=== PATIENT | male | born 1980 | race Caucasian/White ===

== ENCOUNTER 2018-03-31 21:31 | Emergency (ER) | payer OTHER ==
[~2018-03-31] VITALS: Ht 175.3 cm; Wt 97.5 kg
== END 2018-03-31 22:13 | disposition home or self-care (01) ==
LOC: ED 21:31
DX: S68.123A Partial traumatic metacarpophalangeal amputation of left middle finger, initial encounter (principal); W26.0XXA Contact with knife, initial encounter; Z88.1 Allergy status to other antibiotic agents
CPT/HCPCS: 99282

== ENCOUNTER 2023-05-21 12:00 | Emergency (ER) | payer OTHER ==
[~2023-05-21] VITALS: Ht 175.3 cm; Wt 102.1 kg
--- OUTSIDE RECORDS SUMMARY | 2023-05-21 12:04 | XMS ---
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 Lona has no Care Guidelines for this patient. Crystal VISIT COUNT (12 MO.) 1 CRISTINA Barrera TOTAL 1 NOTE: Visits indicate total known visits. ED/C VISIT TRACKING (12 MO.) 05/21/2023 12:01 [facility]ST[facility] Fontaine [place] TYPE: Emergency COMPLAINT: - CHEST PAIN INPATIENT VISIT TRACKING (12 MO.) No inpatient visits to display in this time frame [email or web address]
[2023-05-21] MEDS ORDERED: BUPRENORPHINE HC2 MG SL (12:14)
[2023-05-21 12:26] LABS: BASOPHILS 0.8 % (0-2); EOSINOPHILS 0.9 % (0-6); HEMATOCRIT 43.2 % (35.0-50.0); HEMOGLOBIN 14.5 g/dL (12.0-18.0); LYMPHOCYTES 28.8 % (24-44); MCH 29.3 (27-36); MCHC 33.5 g/dl (30-36); MCV 87.4 fl (81-99); MONOCYTES 5.6 % (0-12); NEUTROPHILS 63.9 % (39-80); PLATELET COUNT 420 K/uL (140-440); RBC 4.94 M/ul (4.3-5.7); RDW 12.9 (10.5-15.0)
[2023-05-21 12:43] LABS: ALBUMIN 4.6 g/dL (3.4-5.0); ALBUMIN/GLOBULIN RATIO 1.24 (1.1-2.4); ALKALINE PHOSPHATASE 69 U/L (46-116); ALT (SGPT) 46 U/L (14-59); ANION GAP 12.1 (7-21); AST (SGOT) 24 U/L (15-37); BILIRUBIN, TOTAL 0.3 ng/dL (0.2-1.0); BUN/CREATININE RATIO 17.77 (6.0-28.6); CALCIUM 9.5 mg/dL (8.5-10.1); CARBON DIOXIDE 28 mmol/L (21-32); CHLORIDE 100 mmol/L (98-107); GLOMERULAR FILTRATION RATE,EST 109 mL/min (>60); MAGNESIUM 1.9 mg/dL (1.8-2.4); POTASSIUM 4.1 mmol/L (3.5-5.1); PROTEIN, TOTAL 8.3 g/dL (6.4-8.2); UREA NITROGEN 16 mg/dL (7-18)
[2023-05-21 13:47] VITALS: BP 157/112
--- NOTE | 2023-05-22 05:56 | EKG ---
[facility] [address] [place], [place] [address] Signed Normal sinus rhythm with sinus arrhythmia Minimal voltage criteria for LVH, may be normal variant ( R in aVL ) Borderline ECG No previous ECGs available Confirmed by SHELL BNAEGAS MD ([id number]) on 05/22/2023 5:55:58 AM Electronically Signed By: SHELL BANEGAS 05/22/23 0556 PATIENT NAME: LISSA FENG EDWRD II Electrocardiogram DATE OF : 82 PHYSICIAN: SHELL BANEGAS REPORT #: [id number] REPORT IS CONFIDENTIAL AND NOT TO BE RELEASED WITHOUT AUTHORIZATION
== END 2023-05-21 13:50 | disposition home or self-care (01) ==
LOC: ED 12:00
PROVIDERS: Emergency Medicine
DX: R07.89 Other chest pain (principal); K21.9 Gastro-esophageal reflux disease without esophagitis; Z88.1 Allergy status to other antibiotic agents; Z79.899 Other long term (current) drug therapy
CPT/HCPCS: 36415; 71045; 80053; 83690; 83735; 84484; 85025; 93005; 93010; A9270

== ENCOUNTER 2023-05-25 15:52 | Emergency (ER) | payer OTHER ==
[~2023-05-25] VITALS: Ht 175.3 cm; Wt 102.1 kg
[~2023-05-25 15:52] MED LIST: BUPRENORPHINE HC2 MG SL
--- OUTSIDE RECORDS SUMMARY | 2023-05-25 15:54 | XMS ---
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 Lona has no Care Guidelines for this patient. Crystal [facility] (12 MO.) [facility] NOTE: Visits indicate total known visits. ED/C VISIT TRACKING (12 MO.) [facility] COMPLAINT: - CHEST [AIN 05/21/2023 12:01 [facility] [place] TYPE: Emergency COMPLAINT: - CHEST PAIN DIAGNOSES: - Allergy status to other antibiotic agents - Gastro-esophageal reflux disease without esophagitis - Other chest pain - Other care home (current) drug therapy INPATIENT VISIT TRACKING (12 MO.) No inpatient visits to display in this time frame [email or web address]
[2023-05-25 18:47] LABS: BASOPHILS 0.4 % (0-2); EOSINOPHILS 1.3 % (0-6); HEMATOCRIT 45.2 % (35.0-50.0); HEMOGLOBIN 15.4 g/dL (12.0-18.0); LYMPHOCYTES 23.1 % (24-44); MCH 29.6 (27-36); MCHC 34.1 g/dl (30-36); MCV 86.8 fl (81-99); MONOCYTES 7.1 % (0-12); NEUTROPHILS 68.1 % (39-80); PLATELET COUNT 429 K/uL (140-440); RDW 12.8 (10.5-15.0)
[2023-05-25 18:58] LABS: ALBUMIN 4.8 g/dL (3.4-5.0); ALBUMIN/GLOBULIN RATIO 1.23 (1.1-2.4); ANION GAP 13.4 (7-21); BILIRUBIN, TOTAL 0.5 ng/dL (0.2-1.0); BUN/CREATININE RATIO 16.03 (6.0-28.6); CALCIUM 9.8 mg/dL (8.5-10.1); CREATININE, SERUM 1.06 mg/dL (0.70-1.30); MAGNESIUM 2.2 mg/dL (1.8-2.4); POTASSIUM 4.4 mmol/L (3.5-5.1); PROTEIN, TOTAL 8.7 g/dL (6.4-8.2)
[2023-05-25] MEDS ORDERED: LISINOPRIL-HCT1 EAC2 PO (20:01)
[2023-05-25 20:20] VITALS: BP 158/117
--- NOTE | 2023-05-25 21:35 | EKG ---
[facility] [address] [place] [address] Signed Normal sinus rhythm Minimal voltage criteria for LVH, may be normal variant ( R in aVL ) Borderline ECG When compared with ECG of 21-MAY-2023 12:04, No significant change was found Confirmed by Melissa Richardson MD () on 05/25/2023 9:35:11 PM Electronically Signed By: MELISSA RICHARDSON MD 05/25/23 2135 PATIENT NAME: LISSA FENG EDWRD II Electrocardiogram DATE OF : 82 PHYSICIAN: MELISSA RICHARDSON MD REPORT #: [id number] REPORT IS CONFIDENTIAL AND NOT TO BE RELEASED WITHOUT AUTHORIZATION
== END 2023-05-25 20:20 | disposition home or self-care (01) ==
LOC: ED 15:52
PROVIDERS: Emergency Medicine
DX: R07.89 Other chest pain (principal); I10 Essential (primary) hypertension; Z88.1 Allergy status to other antibiotic agents
CPT/HCPCS: 36415; 71045; 80053; 83735; 84484; 85025; 93005; 93010; 99285-25; A9270

== ENCOUNTER 2024-01-21 01:49 | Emergency (ER) | payer OTHER ==
[~2024-01-21] VITALS: Ht 175.3 cm; Wt 105.6 kg
[~2024-01-21 01:49] MED LIST changes: +LISINOPRIL-HCT1 EAC2 PO
--- OUTSIDE RECORDS SUMMARY | 2024-01-21 01:52 | XMS ---
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 Lona has no Care Guidelines for this patient. Crystal VISIT COUNT (12 MO.) 3 CRISTINA Barrera TOTAL 3 NOTE: Visits indicate total known visits. 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
[2024-01-21] MEDS ORDERED: FAMOTIDINE 20 MG/ 2 ML VIAL IV ONE (03:00)
[2024-01-21] MEDS ORDERED: KETOROLAC TROMETHAMINE 30 MG/ML VIAL IV ONE (03:00)
[2024-01-21] MEDS ORDERED: ondansetron HCL 4 MG/2 ML VIAL IV ONE (03:00)
[2024-01-21] MEDS ORDERED: LACTATED RINGER'S 1,000 ML IV ONE (03:00)
[2024-01-21 03:02] LABS: BASOPHILS 0.3 % (0-2); EOSINOPHILS 2.1 % (0-6); HEMATOCRIT 43.1 % (35.0-50.0); HEMOGLOBIN 14.4 g/dL (12.0-18.0); LYMPHOCYTES 27.7 % (24-44); MCH 29.4 (27-36); MCHC 33.4 g/dl (30-36); MCV 87.9 fl (81-99); MONOCYTES 8.9 % (0-12); PLATELET COUNT 399 K/uL (140-440); RBC 4.91 M/ul (4.3-5.7); RDW 12.9 (10.5-15.0)
[2024-01-21 03:16] LABS: ALBUMIN 4.4 g/dL (3.4-5.0); ALBUMIN/GLOBULIN RATIO 1.26 (1.1-2.4); ANION GAP 12.2 (7-21); BILIRUBIN, TOTAL 0.3 ng/dL (0.2-1.0); BUN/CREATININE RATIO 19.29 (6.0-28.6); CALCIUM 9.7 mg/dL (8.5-10.1); CREATININE, SERUM 1.14 mg/dL (0.70-1.30); POTASSIUM 4.2 mmol/L (3.5-5.1); PROTEIN, TOTAL 7.9 g/dL (6.4-8.2)
[2024-01-21 03:51] LABS: BILIRUBIN, URINE NEGATIVE (negative); BLOOD/HGB, URINE LARGE (Negative); KETONE, URINE NEGATIVE (Negative); LEUK ESTERASE, URINE NEGATIVE (negative); NITRITE, URINE NEGATIVE (negative)
[2024-01-21 04:08] LABS: RED BLOOD CELLS, URINE 41-50 /hpf (0-5)
[2024-01-21 04:09] LABS: BACTERIA, URINE 1+ /hpf (negative); CASTS, URINE HYALINE 1+ \\lpf; COLLECTION TYPE, URINE CLEAN CATCH; CRYSTALS, URINE NONE SEEN (0-1+); EPITHELIAL CELLS, URINE SQUAMOUS 1+ /lpf (0-1+); REFLEX CULTURE, URINE No (No)
[2024-01-21] MEDS ORDERED: FLOMAX0.4 MG PO (05:08)
[2024-01-21] MEDS ORDERED: TAMSULOSIN HCL 0.4 MG CAP PO ONE (05:15)
[2024-01-21 05:19] VITALS: BP 128/72
== END 2024-01-21 05:20 | disposition home or self-care (01) ==
LOC: ED 01:49
PROVIDERS: Internal Medicine
DX: N13.2 Hydronephrosis with renal and ureteral calculous obstruction (principal); I10 Essential (primary) hypertension; Z88.1 Allergy status to other antibiotic agents; Z79.899 Other long term (current) drug therapy
CPT/HCPCS: 36415; 74176; 80053; 81001; 83690; 85025; 96361; 96374; 96375; 99284-25; J1885; J2405; J7121